=== PATIENT | female | born 1955 | race Caucasian/White ===

== ENCOUNTER 2017-01-23 11:27 | Day surgery (SDC) | payer OTHER ==
[~2017-01-23] VITALS: Ht 144.8 cm; Wt 60.2 kg
[~2017-01-23 11:27] MED LIST: CETI10CA PO; CHOLESTEROL MED PO; HC30CR25 TOP; LACTULOSE PO; PROP20TA4 PO; RANI150C11 PO
[2017-01-23 12:52] VITALS: Ht 144.8 cm; Wt 60.2 kg
[2017-01-23] MEDS ORDERED: CHOL100062 PO (13:05)
[2017-01-23] MEDS ORDERED: LIDOCAINE 2% (SDV) 5 ML INJ ONE (14:39)
[2017-01-23] MEDS ORDERED: PROPOFOL 40 ML ONE (14:39)
[2017-01-23] MEDS ORDERED: MIDAZOLAM 1 MG/ML 2 ML INJ ONE (14:39)
[2017-01-23 14:43] VITALS: BP 118/74; PULSE 68; RESP 14
[2017-01-23 15:40] VITALS: BP 114/61; PULSE 66; RESP 19
--- NOTE | 2017-01-23 15:50 | GILP ---
DATE OF PROCEDURE: 01/23/2017 PROCEDURE: Esophagogastroduodenoscopy with endoscopic variceal ligation and biopsies. PREMEDICATION: Monitored anesthesia care by anesthesiologist. SURGEON: Albertina Serrano MD. INSTRUMENT USED: Olympus upper endoscope. TECHNIQUE: After informed consent, with the patient/relatives understanding the procedure, its indic ations, potential risks and complications, including but not limited to: allergic reaction, bleeding , perforation or infection, and after all pertinent questions were answered to the patient's satisfa ction, the patient/relatives signed witnessed informed consent. Following this, premedication was administered slowly IV push under careful cardiovascular and respi ratory monitoring with pulse oximetry, automatic blood pressure and ekg monitor tech. Once the sedative effect was achieved the patient was place in the left lateral decubitus, the panen doscope was introduced and advanced under visual control. Careful examination of the upper gastrointestinal tract, both on insertion as well as withdrawal of the instrument disclosed the following findings: ESOPHAGUS: The distal esophagus showed significant grade III/IV esophageal varices with stigmata of recent bleeding. STOMACH: Upon entrance to the stomach air was insufflated, the gastric lowe distended normally. Th ere is congestion, erythema and edema of the mucosa, as well as a prominent fold in the antrum. The re is a small 5 mm ulceration with no stigmata of recent bleeding and benign esophageal appearance. PYLORUS: The pylorus appears patent and within normal limits, with no evidence of gastric outlet ob struction. DUODENUM: The duodenal mucosa was carefully examined in the duodenal bulb as well as the second por tion of the duodenum and appears unremarkable with no evidence of duodenitis, ulcer or neoplasm. The instrument was then withdrawn, the patient tolerated the procedure well and was transfer out of the endoscopy suite awake, and in good condition to continue recovery under observation At this point, the instrument was brought back. The banding device was applied to the tip of the en doscope. The endoscope was reintroduced and 5 bands were applied to the most prominent variceal reji nnels. IMPRESSION: 1. Grade III-IV esophageal varices post-endoscopic variceal ligation x5. 2. Shallow antral gastric ulceration 5 mm benign endoscopic appearance, biopsies obtained, rule out Helicobacter pylori infection. PLAN: The patient was treated with PPIs. Pathology will be reviewed as soon as available. EGD wit h possible further banding is recommended in 3 months. Dictated By: ALBERTINA SERRANO MS/MAYCO Conf#: [id number] DID#: [id number]
== END 2017-01-23 16:17 | disposition home or self-care (01) ==
LOC: GIL 11:27
PROVIDERS: ATTEND Internal Medicine Gastroenterology
DX: I85.00 Esophageal varices without bleeding (principal); K25.9 Gastric ulcer, unspecified as acute or chronic, without hemorrhage or perforation; K74.60 Unspecified cirrhosis of liver; B19.20 Unspecified viral hepatitis C without hepatic coma; I10 Essential (primary) hypertension; M81.0 Age-related osteoporosis without current pathological fracture
CPT/HCPCS: 43239; 43244; 88305; 88312; J2250; Z7610

== ENCOUNTER 2017-07-12 13:30 | Day surgery (SDC) | payer OTHER ==
[~2017-07-12] VITALS: Ht 144.8 cm; Wt 60.8 kg
[~2017-07-12 13:30] MED LIST changes: +CHOL100062 PO; -CHOLESTEROL MED PO
[2017-07-12] MEDS ORDERED: OMEPRAZOLE PO (14:06)
[2017-07-12 14:27] VITALS: Ht 144.8 cm; Wt 60.8 kg
[2017-07-12 16:06] VITALS: BP 106/69; PULSE 61; RESP 35
[2017-07-12] MEDS ORDERED: PROPOFOL 20 ML ONE (16:13)
--- NOTE | 2017-07-12 16:45 | OPPN ---
Date/Time of Note Date/Time of Note DATE: 07/12/17 TIME: 16:37 Proc Note GI Procedure Date 07/12/17 Indication: other (SURVEILLANCE ESOPHAGEAL VARICES) Pre-procedure Diagnosis SURVEILLANCE ESOPHAGEAL VARICES Post-procedure Diagnosis Impression: Grade III/IV esophageal varices. Post endoscopic variceal ligation 5 Healed gastric ulcer. Residual gastritis versus portal gastropathy. Rule out H. pylori infection. Biopsies obtained Otherwise normal EGD Plan: Continue present regimen and PPI therapy Surveillance EGD in 3 months Review pathology . Procedure Performed: Endoscopy (With endoscopic variceal ligation plus biopsies ) Surgeon ALBERTINA GONSALEZ MD See signature line Volunteer Recruitment Coordinator none Anesthesia Type: MAC Anesthesiologist: JOYA LINDSAY PA-C Tourniquet Time none EBL none Transfusion required none Biopsy 1: Gastric antrum/rule out H. pylori infection Grafts/Implants none Tubes/Drains none Complication(s) none Disposition: home Procedure Description Preoperative Diagnosis: After informed consent, with the patient/relatives understanding the procedure, its indications, potential risks and complications, including but not limited to : allergic reaction, bleeding, perforation or infection, and after all pertinent questions were answered to the patients satisfaction, the patient/ relatives signed witnessed informed consent. Following this, premedication was administered slowly IV push under careful cardiovascular and respiratory monitoring with pulse oximetry, automatic blood pressure, and monitor technician. Once the sedative effect was achieved the patient was place in the left lateral decubitus, the panendoscope was introduced and advanced under visual control. Careful examination of the upper gastrointestinal tract, both on insertion as well as withdrawal of the instrument disclosing the following findings: ESOPHAGUS: the mucosa of the entire esophagus was carefully examined and showed the following findings: There are grade III/IV esophageal varices. Endoscopic variceal ligation 5 was applied without evidence of complication. Otherwise the mucosa appears within normal limits. There is no evidence of esophagitis, neoplasm, or stricture. No Hiatal Hernia identified. STOMACH: Upon entrance to the stomach air was insufflated, the gastric lowe distended normally. The mucosa of the fundus, body and antrum of the stomach was carefully examined both head-on and on retroflexion, and showed the following findings: There is complete healing of previously noted gastric ulceration. There is residual erythema, edema of the mucosa which may represent portal hypertensive gastropathy. Biopsies were obtained to rule out H. pylori gastritis. Otherwise the mucosa appears within normal limits with no abnormalities. There is no evidence of ulcers or neoplasm. PYLORUS: The pylorus was carefully examined and showed the following findings: the pylorus appears patent and within normal limits, with no evidence of gastric outlet obstruction. DUODENUM: The duodenal mucosa was carefully examined in the duodenal bulb as well as the second portion of the duodenum and showed the following findings: the mucosa appears unremarkable with no evidence of duodenitis, ulcer or neoplasm. Copies To: CC: ALBERTINA GONSALEZ MD, MORDO MD Jul 12, 2017 16:45
[2017-07-12 17:06] VITALS: BP 133/81; RESP 14
== END 2017-07-12 16:55 | disposition home or self-care (01) ==
LOC: GIL 13:30
PROVIDERS: ATTEND Internal Medicine Gastroenterology
DX: I85.00 Esophageal varices without bleeding (principal); K29.30 Chronic superficial gastritis without bleeding; I10 Essential (primary) hypertension; K74.60 Unspecified cirrhosis of liver; M81.0 Age-related osteoporosis without current pathological fracture
CPT/HCPCS: 43239; 43244; 88305; 88312; Z7610

== ENCOUNTER 2017-12-11 12:51 | Day surgery (SDC) | END 2017-12-11 19:11 | disposition home or self-care (01) ==

== ENCOUNTER 2018-09-19 20:37 | Emergency (ER) | payer OTHER ==
[~2018-09-19] VITALS: Ht 152.4 cm; Wt 61.0 kg
[~2018-09-19 20:37] MED LIST changes: +OMEPRAZOLE PO; -RANI150C11 PO
[2018-09-19 20:46] VITALS: Ht 152.4 cm; Wt 61.0 kg
[2018-09-19] MEDS ORDERED: FAMOTIDINE 20 MG TAB PO STA (22:23)
[2018-09-19] MEDS ORDERED: ONDANSETRON 4 MG INJ IV STA (22:23)
[2018-09-19] MEDS ORDERED: morphine 4 MG/ML VIAL IV STA (22:23)
[2018-09-19] MEDS ORDERED: LIDOCAINE/MYLANTA 40 ML BTL PO STA (22:23)
[2018-09-19] MEDS ORDERED: BELLADONNA/PHENOBARBITAL TAB PO STA (22:23)
[2018-09-19] MEDS ORDERED: SOD CHLORIDE 0.9% 1,000 ML IV STA (22:23)
[2018-09-19] MEDS ORDERED: IOHEXOL 300MG/ML 150 ML BTL ONE (22:43)
[2018-09-19] MEDS ORDERED: SOD CHLORIDE 0.9% 100 ML ONE (22:43)
--- NOTE | 2018-09-19 22:44 | ERD ---
ER Documentation Chief Complaint Chief Complaint abdominal pain x 2 weeks HPI 63-year-old woman with a history of grade 1 esophageal varices and gastritis presents with mild diffuse epigastric and generalized abdominal cramping times 1 week getting worse over the last day. She states her pain is mostly epigastric, sharp, nonradiating and nonexertional. She has burning as well. She denies obvious precipitating or alleviating factors and denies previous similar episodes. She has been using omeprazole daily as prescribed she has had no blood per rectum or melena she has had some nausea but no vomiting or diarrhea. Patient denies chest pain or shortness of breath. Patient denies weight loss. ROS All systems reviewed and are negative except as per history of present illness. Medications Home Meds Active Scripts Famotidine* (Pepcid*) 20 Mg Tablet, 20 MG PO BID for 14 Days, TAB Prov:KORY KEE MD 09/20/18 Mag Hydrox/Al Hydrox/Simeth (Maalox Advanced Suspension) 355 Ml Oral.susp, 2 TSP PO TID PRN for PAIN, #24 OZ Prov:KORY KEE MD 09/20/18 Cetirizine Hcl* (Zyrtec*) 10 Mg Capsule, 10 MG PO DAILY, #14 TAB.CHEW Prov:MARGARITO SOW MD 06/20/15 Hydrocortisone* Topical (Hydrocortisone* Topical) 2.5%-28.3 Gm Cream..g., 1 APPLIC TOP TID for 7 Days, TUB Prov:MARGARITO SOW MD 06/20/15 Reported Medications [Omeprazole] No Conflict Check, PO 07/12/17 Cholecalciferol* (Vitamin D3*) 1,000 Unit Tablet, 1000 UNIT PO DAILY, TAB 01/23/17 [Lactulose] No Conflict Check, PO 06/24/14 Propranolol Hcl* (Propranolol Hcl*) 20 Mg Tablet, 20 MG PO DAILY 08/16/11 Allergies Allergies: Coded Allergies: No Known Drug Allergies (Verified Allergy, Unknown, 06/20/15) PMhx/Soc Grade 1 esophageal varices, hypertension, gastritis, history of cholecystectomy History of Surgery: Yes (C/s x4, CHLECYSECTOMY, breast aug, tummy tuck) Anesthesia Reaction: No Hx Neurological Disorder: No Hx Respiratory Disorders: No Hx Cardiac Disorders: Yes (HYPERTENSION) Hx Psychiatric Problems: No Hx Miscellaneous Medical Probl: Yes (GERD) Hx Alcohol Use: No Hx Substance Use: No Hx Tobacco Use: No Smoking Status: Never smoker FmHx Family History: No diabetes Physical Exam Vitals Vital Signs Date Temp Pulse Resp B/P (MAP) Pulse Ox O2 O2 Flow FiO2 Time Delivery Rate 09/20/18 97.8 68 16 93/60 (71) 99 Room Air 02:27 09/19/18 99.0 78 18 132/76 97 20:46 (94) Physical Exam GENERAL: Well-developed, well-nourished, well-hydrated, in no apparent distress, looks nontoxic in appearance HEENT: Moist mucous membranes, pink conjunctiva, no cervical spine tenderness or step-off deformities, no goiter, no jaundice or icterus, extraocular movements intact without pain. No submandibular induration, and no pharyngeal erythema NEURO: Alert and oriented 3, cranial nerves II through XII intact bilaterally, pupils equal round reactive to light, no focal deficits or facial asymmetry, sensation intact distally Strength 5/5 in upper and lower extremities bilaterally CARDIAC: Regular rate and rhythm, no murmurs rubs or gallops LUNGS: Clear bilaterally no wheezing crackles or stridor ABDOMEN: Soft nontender, no guarding, no rigidity, no rebound, no psoas sign no obturator sign. Normoactive bowel sounds SKIN: Warm and dry to touch, no abrasions, contusions, or hematomas, no lacerations, no ecchymosis, no target lesions, and without ulcers EXTREMITIES: No clubbing cyanosis or edema, calves are bilaterally symmetrical, no Homans sign, no popliteal cord sign. Distal pulses equal and bilateral PSYCH: Normal affect without agitation or irritability Result Diagram: 09/19/18212409/19/182124 Results 24 hrs Laboratory Tests Test 09/19/18 21:25 09/19/18 21:30 White Blood Count 6.7 10^3/ul Red Blood Count 4.77 10^6/ul Hemoglobin 14.0 g/dl Hematocrit 42.6 % Mean Corpuscular Volume 89.3 fl Mean Corpuscular Hemoglobin 29.4 pg Mean Corpuscular Hemoglobin Concent 32.9 g/dl Red Cell Distribution Width 12.3 % Platelet Count 172 10^3/UL Mean Platelet Volume 11.1 fl Immature Granulocytes % 0.400 % Neutrophils % 66.6 % Lymphocytes % 20.4 % Monocytes % 8.5 % Eosinophils % 3.4 % Basophils % 0.7 % Nucleated Red Blood Cells % 0.0 /100WBC Immature Granulocytes # 0.030 10^3/ul Neutrophils # 4.5 10^3/ul Lymphocytes # 1.4 10^3/ul Monocytes # 0.6 10^3/ul Eosinophils # 0.2 10^3/ul Basophils # 0.1 10^3/ul Nucleated Red Blood Cells # 0.0 10^3/ul Urine Color YELLOW Urine Clarity CLEAR Urine pH 5.0 Urine Specific [place] 1.013 Urine Ketones NEGATIVE mg/dL Urine Nitrite NEGATIVE mg/dL Urine Bilirubin NEGATIVE mg/dL Urine Urobilinogen 1+ mg/dL Urine Leukocyte Esterase NEGATIVE Patricia/ul Urine Microscopic RBC 8 /HPF Urine Microscopic WBC 1 /HPF Urine Hemoglobin 2+ mg/dL Urine Glucose NEGATIVE mg/dL Urine Total Protein NEGATIVE mg/dl Sodium Level 140 mmol/L Potassium Level 3.9 mmol/L Chloride Level 103 mmol/L Carbon Dioxide Level 24 mmol/L Anion Gap 13 Blood Urea Nitrogen 14 mg/dl Creatinine 0.45 mg/dl Est Glomerular Filtrat Rate mL/min > 60 mL/min Glucose Level 121 mg/dl Calcium Level 9.5 mg/dl Total Bilirubin 1.0 mg/dl Direct Bilirubin 0.00 mg/dl Indirect Bilirubin 1.0 mg/dl Aspartate Amino Transf (AST/SGOT) 41 IU/L Alanine Aminotransferase (ALT/SGPT) 29 IU/L Alkaline Phosphatase 168 IU/L Total Protein 8.6 g/dl Albumin 4.5 g/dl Globulin 4.10 g/dl Albumin/Globulin Ratio 1.09 Lipase 208 U/L Troponin I < 0.012 ng/ml Current Medications Medications Dose Sig/Vibha Start Time Status Last (Trade) Ordered Route PRN Stop Time Admin Dose Reason Admin Sodium 1,000 ml @ Q1H STAT 09/19/18 DC 09/19/18 Chloride 1,000 mls/hr IV 22:23 22:46 09/19/18 23:22 Morphine 4 mg ONCE STAT 09/19/18 DC 09/19/18 Sulfate IV 22:23 22:46 (morphine) 09/19/18 22:41 Ondansetron 4 mg ONCE STAT 09/19/18 DC 1/11/19 HCl (Zofran IV 22:23 22:46 Inj) 09/19/18 22:41 Famotidine 40 mg ONCE STAT 09/19/18 DC 09/19/18 (Pepcid) PO 22:23 22:46 09/19/18 22:41 40 ml ONCE STAT 09/19/18 DC 09/19/18 Miscellaneous PO 22:23 22:46 Medication 09/19/18 22:41 (Gi Cocktail (2)) Belladonna/ 2 tab ONCE STAT 09/19/18 DC 09/19/18 Phenobarbital PO 22:23 22:47 () 09/19/18 22:41 IV Flush 10 ml STK-MED 09/19/18 DC (NS 10 ml) ONCE .ROUTE 22:43 09/19/18 22:44 Sodium 100 ml @ ud STK-MED 09/19/18 DC Chloride ONCE .ROUTE 22:43 09/19/18 22:44 Iohexol 150 ml STK-MED 09/19/18 DC (Omnipaque ONCE .ROUTE 22:43 300mg/ ml) 09/19/18 22:44 Procedures/MDM IV line was established patient was placed on bridal sales consultant rhythm strip revealed a sinus rhythm at about 80 bpm with upright P and T waves. Patient was afebrile I administered 1 L normal saline IV, morphine 4 mg IV, Zofran 4 mg IV, GI cocktail p.o., famotidine p.o. EKG, read by me: Normal sinus rhythm at 77 bpm, normal axis, narrow QRS complex, no concerning ST elevations or depressions noted CT scan of the abdomen and pelvis was performed, given the patient's symptoms, IMPRESSION: Mild stranding of the central mesenteric fat with small mesenteric lymph nodes represents nonspecific mesenteritis-adenitis. Cirrhotic liver with gastroesophageal varices. Small nodular densities within bilateral lung bases could be post infectious/inflammatory; however, follow-up is recommended to exclude metastatic disease. Small umbilical hernia containing fat. Calcified uterine fibroid. Mild bibasilar atelectasis. CBC and electrolytes were normal, liver function tests were normal, troponin was negative, urinalysis negative for infection but positive for RBCs. Patient's vital signs remained normal and her abdominal exam has remained benign. I did repeat abdominal exam after initial workup and management and prior to discharge. She has no guarding, rigidity, or tenderness. She is without complaints of abdominal pain at this time and feels much better. Differential diagnoses considered, included but not limited to acute coronary syndrome, pulmonary embolism, aortic dissection, abdominal aortic aneurysm, sepsis, stroke, meningitis, encephalitis, pneumonia, appendicitis, cholecystitis, bowel obstruction, pyelonephritis, nephrolithiasis, cystitis, as well as metabolic, hematologic, and electrolyte abnormalities. As well as abscess, cellulitis, fractures, and dislocations. Patient feels much better at this time, and vital signs are normal, symptoms have improved. I did give strict instructions to return to the ED if symptoms continue or worsen, patient will otherwise follow-up with primary care physician. Patient understood instructions and agreed to plan. Disclaimer: Inadvertent spelling and grammatical errors are likely due to EHR/dictation software use and do not reflect on the overall quality of patient care. Also, please note that the electronic time recorded on this note does not necessarily reflect the actual time of the patient encounter. Departure Diagnosis: Primary Impression: Abdominal pain Abdominal location: epigastric Qualified Codes: R10.13 - Epigastric pain Additional Impression: Hematuria Hematuria type: asymptomatic microscopic Qualified Codes: R31.21 - Asymptomatic microscopic hematuria Condition: Good KORY KEE MD Sep 19, 2018 22:44
[2018-09-20] MEDS ORDERED: MAG355OR14 PO (01:31)
[2018-09-20] MEDS ORDERED: FAMO-96 PO (01:31)
[2018-09-20 02:27] VITALS: BP 93/60; PULSE 68; RESP 16
== END 2018-09-20 02:27 | disposition home or self-care (01) ==
LOC: E/R 20:37
DX: R10.13 Epigastric pain (principal); R31.21 Asymptomatic microscopic hematuria; I10 Essential (primary) hypertension
CPT/HCPCS: 36415; 74177; 80053; 81001; 83690; 84484; 85025; 96361; 96374; 96375; J2270; J2405; J7030; Q9967; Z7502; Z7610; 93005

== ENCOUNTER 2019-02-24 07:03 | Emergency (ER) | payer OTHER ==
[~2019-02-24] VITALS: Ht 152.4 cm; Wt 60.6 kg
[~2019-02-24 07:03] MED LIST changes: +FAMO-96 PO; +MAG355OR14 PO
[2019-02-24 07:05] VITALS: BP 170/86; PULSE 57; RESP 18; Ht 152.4 cm; Wt 60.6 kg
--- NOTE | 2019-02-24 07:36 | ERD ---
ER Documentation Chief Complaint Chief Complaint left eye redness since am, denies pain or itching HPI 63-year-old female presenting with redness to her right eye. She states that started this morning she denies any pain or itching. She states there is been no vision changes. She does wear glasses. Medical history of cirrhosis and varices history. NKDA. Surgical history of bladder surgery. Social history denies ROS All systems reviewed and are negative except as per history of present illness. Medications Home Meds Active Scripts Famotidine* (Pepcid*) 20 Mg Tablet, 20 MG PO BID for 14 Days, TAB Prov:KORY KEE MD 09/20/18 Mag Hydrox/Al Hydrox/Simeth (Maalox Advanced Suspension) 355 Ml Oral.susp, 2 TSP PO TID PRN for PAIN, #24 OZ Prov:KORY KEE MD 09/20/18 Cetirizine Hcl* (Zyrtec*) 10 Mg Capsule, 10 MG PO DAILY, #14 TAB.CHEW Prov:MARGARITO SOW MD 06/20/15 Hydrocortisone* Topical (Hydrocortisone* Topical) 2.5%-28.3 Gm Cream..g., 1 APPLIC TOP TID for 7 Days, TUB Prov:MARGARITO SOW MD 06/20/15 Reported Medications [Omeprazole] No Conflict Check, PO 07/12/17 Cholecalciferol* (Vitamin D3*) 1,000 Unit Tablet, 1000 UNIT PO DAILY, TAB 01/23/17 [Lactulose] No Conflict Check, PO 06/24/14 Propranolol Hcl* (Propranolol Hcl*) 20 Mg Tablet, 20 MG PO DAILY 08/16/11 Allergies Allergies: Coded Allergies: No Known Drug Allergies (Verified Allergy, Unknown, 06/20/15) PMhx/Soc History of Surgery: Yes (C/s x4, CHLECYSECTOMY, breast aug, tummy tuck) Anesthesia Reaction: No Hx Neurological Disorder: No Hx Respiratory Disorders: No Hx Cardiac Disorders: Yes (HYPERTENSION) Hx Psychiatric Problems: No Hx Miscellaneous Medical Probl: Yes (GERD,varicose veins in stomach,hepatitis C,cirrhosis) Hx Alcohol Use: No Hx Substance Use: No Hx Tobacco Use: No Smoking Status: Never smoker FmHx Family History: No diabetes, No coronary disease, No other Physical Exam Vitals Vital Signs Date Temp Pulse Resp B/P (MAP) Pulse Ox O2 O2 Flow FiO2 Time Delivery Rate 02/24/19 97.6 57 18 170/86 97 07:05 (114) Physical Exam GENERAL: The patient is well-appearing, well-nourished, in no acute distress HEENT: Atraumatic. Conjunctivae are pink. Pupils equal, round, and reactive to light. There is no scleral icterus. Tympanic membranes clear bilaterally. Oropharynx clear. Erythema to the right medial eye. CHEST: Clear to auscultation bilaterally. There are no rales, wheezes or rhonchi. HEART: Regular rate and rhythm. No murmurs, clicks, rubs or gallops. Procedures/MDM MDM: 63-year-old female presenting with findings consistent with conjunctival hemorrhage. I have low suspicion for visual deficit. I have low suspicion for bleeding disorder. Patient is discharged with strict ER precautions and recommended to follow-up with primary care within 1 to 2 days for close evaluation. Patient is told symptoms change or worsen to return immediately to the ER. All questions answered at discharge Departure Diagnosis: Primary Impression: Subconjunctival hemorrhage of right eye Condition: Stable Patient Instructions: Subconjunctival Hemorrhage Referrals: [facility] Hours: Mon - Fri 9:00 AM - 5:00 PM Additional Instructions: FOLLOW UP WITH YOUR PRIMARY CARE PHYSICIAN TOMORROW.Return to this facility if you are not improving as expected. TRUNG ALVAREZ PA-C Feb 24, 2019 07:36
== END 2019-02-24 08:12 | disposition home or self-care (01) ==
LOC: FTE 07:03
DX: H11.31 Conjunctival hemorrhage, right eye (principal); I10 Essential (primary) hypertension
CPT/HCPCS: 99283